=== PATIENT | male | born 1990 ===

== ENCOUNTER 2022-01-12 11:27 | Emergency (ER) | payer OTHER ==
[~2022-01-12] VITALS: Ht 172.7 cm; Wt 73.4 kg
[2022-01-12 11:53] LABS: HEMATOCRIT 41.3 % (39.0-50.0); HEMOGLOBIN 13.8 g/dl (14.0-18.0); MEAN CELL VOLUME 96.7 fL CALC (80.0-100.0); MEAN CORPUSCULAR HGB 32.3 pG CALC (26.0-32.0); MEAN CORPUSCULAR HGB CONC 33.4 g/dL CAL (32.0-36.0); NEUT# 4.14 thou/uL (1.82-7.42); RED BLOOD COUNT 4.27 mill/uL (4.70-6.10); RED CELL DISTRI WIDTH 12.3 % (11.5-15.5)
[2022-01-12 12:11] LABS: ALBUMIN 4.1 g/dL (3.2-5.0); ALKALINE PHOSPHATASE 75 u/l (38-126); ANION GAP 12 (6-22 (CALC)); BILIRUBIN, TOTAL 0.5 mg/dL (0.0-1.4); BUN 9 mg/dL (9-20); BUN/CREATININE RATIO 8 (12-20 (CALC)); CARBON DIOXIDE 23 mmol/l (22-30); CHLORIDE 107 mmol/l (95-108); ETHYL ALCOHOL 0 mg/dl (0-30); GFR FOR AFR.AMER. > 60 ML/MIN (>=60 (CALC)); GFR OTHER RACES > 60 ML/MIN (>=60 (CALC)); POTASSIUM 3.6 mmol/l (3.5-5.1); SGOT/AST 39 u/l (17-59); SODIUM 139 mmol/l (137-146); TOTAL PROTEIN 7.1 g/dL (6.3-8.2)
[2022-01-12 12:30] VITALS: BP 126/76
[2022-01-12 15:21] VITALS: BP 170/79
[2022-01-12 15:34] VITALS: BP 162/69
== END 2022-01-12 14:07 | disposition home or self-care (01) | DRG 552 ==
LOC: ED 11:27
PROVIDERS: Family Medicine
DX: M54.2 Cervicalgia (principal); X83.8XXA Intentional self-harm by other specified means, initial encounter; Y92.149 Unspecified place in prison as the place of occurrence of the external cause
CPT/HCPCS: Q9967

== ENCOUNTER 2022-02-03 22:55 | Emergency (ER) | payer OTHER ==
[~2022-02-03] VITALS: Ht 172.7 cm; Wt 85.9 kg
[2022-02-03 23:29] VITALS: BP 123/83
[2022-02-04 00:35] LABS: IMMATURE GRANULOCYTES 0.2 % (0.0-5.0); MEAN CELL VOLUME 94.9 fL CALC (80.0-100.0); MEAN CORPUSCULAR HGB 32.2 pG CALC (26.0-32.0); NEUT# 2.39 thou/uL (1.82-7.42); RED BLOOD COUNT 5.12 mill/uL (4.70-6.10); RED CELL DISTRI WIDTH 11.8 % (11.5-15.5)
[2022-02-04 00:38] LABS: HEMATOCRIT 48.6 % (39.0-50.0); HEMOGLOBIN 16.5 g/dl (14.0-18.0)
[2022-02-04 00:48] LABS: ALBUMIN 4.9 g/dL (3.2-5.0); ALKALINE PHOSPHATASE 91 u/l (38-126); AMYLASE 87 u/l (30-110); ANION GAP 25 (6-22 (CALC)); BUN 20 mg/dL (9-20); BUN/CREATININE RATIO 16 (12-20 (CALC)); CARBON DIOXIDE 22 mmol/l (22-30); CHLORIDE 98 mmol/l (95-108); CREATININE 1.2 mg/dL (0.7-1.3); GFR FOR AFR.AMER. > 60 ML/MIN (>=60 (CALC)); GFR OTHER RACES > 60 ML/MIN (>=60 (CALC)); LIPASE 71 u/l (23-300); POTASSIUM 3.8 mmol/l (3.5-5.1); SGOT/AST 35 u/l (17-59); SODIUM 142 mmol/l (137-146)
[2022-02-04 00:56] LABS: TOTAL PROTEIN 8.7 g/dL (6.3-8.2)
[2022-02-04 00:59] LABS: MYOGLOBIN 68 ng/mL (0 - 121)
[2022-02-04] MEDS ORDERED: NAPROXEN500 MG PO (01:47)
== END 2022-02-04 02:31 | disposition designated cancer center or children's hospital (05) | DRG 313 ==
LOC: ED 22:55
PROVIDERS: Emergency Medicine
DX: R07.89 Other chest pain (principal); I10 Essential (primary) hypertension; T80.89XA Other complications following infusion, transfusion and therapeutic injection, initial encounter; Y84.8 Other medical procedures as the cause of abnormal reaction of the patient, or of later complication, without mention of misadventure at the time of the procedure; Y92.149 Unspecified place in prison as the place of occurrence of the external cause; M79.89 Other specified soft tissue disorders; Z95.0 Presence of cardiac pacemaker